=== PATIENT | male | born 1990 | race Two or more races ===

== ENCOUNTER 2024-03-29 09:09 | Emergency (ER) | payer OTHER ==
[2024-03-29] MEDS ORDERED: ACET-683 PO (09:33)
[2024-03-29] MEDS: IBUPROFEN 600MG TAB PO ONE (09:46)
[2024-03-29] MEDS: ACETAMINOPHEN 325 MG TAB PO ONE (09:46)
[2024-03-29 11:35] VITALS: BP 112/62; TEMP 97.9; O2SAT 98
== END 2024-03-29 11:38 | disposition home or self-care (01) ==
LOC: EDBD 09:09 → M ED 09:09
DX: S00.412A Abrasion of left ear, initial encounter (principal); S00.83XA Contusion of other part of head, initial encounter; Y04.2XXA Assault by strike against or bumped into by another person, initial encounter; Y92.9 Unspecified place or not applicable; Y93.9 Activity, unspecified; Y99.0 Civilian activity done for income or pay; F17.200 Nicotine dependence, unspecified, uncomplicated